=== PATIENT | female | born 1965 | race Two or more races ===

== ENCOUNTER 2018-07-12 13:11 | Emergency (ER) | payer BC ==
[2018-07-12] MEDS ORDERED: DIPH,PERTUS(ACELL)TETVAC-LF 0.5 ML VIAL IM ONE (13:29)
--- NOTE | 2018-07-12 13:54 | ED ---
General Adult HPI - General Chief complaint: Wound/Laceration Stated complaint: Finger injury Time Seen by Provider: 07/12/18 13:27 Source: EMS, RN notes reviewed Mode of arrival: EMS Limitations: no limitations - History of Present Illness Initial comments: Patient is a 53-year-old female presents emergency room today with a chief complaint of injury to the third digit of the left hand. She states that she was backing her horse out of the trailer when he got caught on one of the straps causing a laceration to the distal aspect of the left third digit. She states she is unsure of her tetanus status. She admits to pain to the area locally. Denies any other complaints or symptoms. Patient denies any recent fever, chills, shortness of breath, chest pain, back pain, abdominal pain, nausea or vomiting, headaches or visual changes, or any other complaints. - Related Data Previous Rx's Medication Instructions Recorded Cephalexin [Keflex] 500 mg PO Q12HR 10 Days cap 07/12/18 Ibuprofen [Motrin] 800 mg PO Q6HR #30 tab 07/12/18 Allergies Allergy/AdvReac Type Severity Reaction Status Date / Time No Known Allergies Allergy Verified 07/12/18 13:18 Review of Systems ROS Statement: Those systems with pertinent positive or pertinent negative responses have been documented in the HPI. ROS Other: All systems not noted in ROS Statement are negative. Past Medical History Past Medical History: Thyroid Disorder History of Any Multi-Drug Resistant Organisms: None Reported Past Surgical History: No Surgical Hx Reported Past Psychological History: No Psychological Hx Reported Smoking Status: Never smoker Past Alcohol Use History: None Reported Past Drug Use History: None Reported General Exam - General Exam Comments Initial Comments: General: The patient is awake and alert, in no distress, and does not appear acutely ill. Neck: The neck is supple Musculoskeletal: Normal ROM, no tenderness. Strength 5/5. Sensation intact. Pulses equal bilaterally 2+. Neurological: A&O x 3. CN II-XII intact, There are no obvious motor or sensory deficits. Coordination appears grossly intact. Speech is normal. Skin: Amputation of the distal tip just below the DIP joint no active bleeding. Psychiatric: Cooperative, appropriate mood & affect, normal judgment. Limitations: no limitations Course Vital Signs 07/12/18 13:13 Temperature 97.6 F Pulse Rate 84 Respiratory 18 Rate Blood Pressure 119/84 O2 Sat by Pulse 98 Oximetry Medical Decision Making - Medical Decision Making 53-year-old female presenting for a amputation of the third digit. Patient does admit that occurred approximately hour and a half prior to arrival. She does have the distal tip of her right third digit. Patient's tetanus updated. Started on antibiotics here in the emergency room. Case was discussed with orthopedics on-call nurse practitioner Ludy. At this time they advised that she didn't can follow-up in the office for a revision. Patient has been cleaned irrigated here in the emergency room and with a sterile dressing placed by nursing staff. Started on the antibiotics will be discharged home on pain medicine as she states she only takes ibuprofen. Given antibiotics continue at home. Advised return for any other concerns. Advised following up with orthopedics Saturday. Disposition Clinical Impression: Amputation of finger tip Disposition: HOME SELF-CARE Condition: Good Instructions: Finger Amputation (ED) Additional Instructions: Please follow-up with orthopedics Saturday as discussed. Please use and Biaxin as prescribed return here to the emergency room for any other concerns. Prescriptions: Cephalexin [Keflex] 500 mg PO Q12HR 10 Days cap Ibuprofen [Motrin] 800 mg PO Q6HR #30 tab Is patient prescribed a controlled substance at d/c from ED?: No Referrals: Donato Valiente MD [Primary Care Provider] - 1-2 days Jose Francisco Motley DO [Doctor of Osteopathic Medicine] - 1-2 days Time of Disposition: 14:57
--- NOTE | 2018-07-12 14:16 | XR ---
Left hand HISTORY: Trauma and pain 3 views of the left hand There is a traumatic amputation of the distal aspect of the third digit distal to the distal interpha langeal joint, there is overlying dressing present. There is extension of fracture into the distal in terphalangeal joint of the third digit of the left hand with fracture fragment displacement at the vo lar aspect. IMPRESSION: Traumatic injury third digit as described.
[2018-07-12] MEDS ORDERED: GELATIN SPONGE,ABSORB (LARGE) 1 EACH SPONGE TOPICAL STA (14:47)
[2018-07-12] MEDS ORDERED: ceFAZolin 1,000 MG VIAL IM STA (14:47)
[2018-07-12 15:46] VITALS: BP 112/70; PULSE 74; RESP 20; TEMP 98
== END 2018-07-12 15:40 | disposition home or self-care (01) ==
LOC: EC 13:11
DX: S68.113A Complete traumatic metacarpophalangeal amputation of left middle finger, initial encounter (principal); Z23 Encounter for immunization; W23.0XXA Caught, crushed, jammed, or pinched between moving objects, initial encounter; Y92.89 Other specified places as the place of occurrence of the external cause
CPT/HCPCS: 73130; 90715; 99283; 96372; 90471; J0690